=== PATIENT | male | born 1955 | race Caucasian/White ===

== ENCOUNTER 2016-05-14 17:13 | Emergency (ER) | payer BC, OTHER ==
[~2016-05-14] VITALS: Wt 72.0 kg
--- NOTE | 2016-05-14 19:55 | ERD ---
ER Documentation Chief Complaint Date/Time DATE: 05/14/16 TIME: 19:51 Chief Complaint RASH INTERMITTENT FOR THE PAST 10 DAYS HPI This is a 60-year-old male who presents to the emergency department today for a rash that started 10 days ago. Patient is went to his doctor but was not given any medications because he states that he does not drink water because he thinks he is allergic to it causes a reaction. States he then went to an urgent care and was given a shot and the rash resolved for a couple of days but then returned. States that his rash is very itching. Denies any fevers or chills, chest pain or shortness of breath or difficulty breathing ROS All systems reviewed and are negative except as per history of present illness. Medications Home Meds Active Scripts Famotidine* (Pepcid*) 20 Mg Tablet, 20 MG PO BID for 10 Days, TAB Prov:INGA DUDLEY PA-C 05/14/16 Diphenhydramine Hcl* (Benadryl*) 25 Mg Cap, 25 MG PO Q6, #30 CAP Prov:INGA DUDLEY PA-C 05/14/16 Prednisone* (Prednisone*) 20 Mg Tab, 40 MG PO DAILY for 4 Days, TAB Prov:INGA DUDLEY PA-C 05/14/16 Allergies Allergies: Coded Allergies: No Known Drug Allergy (Verified Allergy, Mild, 08/18/09) PMhx/Soc History of Surgery: Yes (appendectomy, sinus surgery.) Anesthesia Reaction: No Hx Neurological Disorder: No Hx Respiratory Disorders: No Hx Cardiac Disorders: No Hx Psychiatric Problems: No Hx Miscellaneous Medical Probl: No Hx Alcohol Use: Yes (rarely) Hx Substance Use: No Hx Tobacco Use: Yes Smoking Status: Current every day smoker Physical Exam Vitals Vital Signs Date Time Temp Pulse Resp B/P Pulse Ox O2 Delivery O2 Flow Rate FiO2 05/14/16 17:48 98.5 92 20 115/68 97 Physical Exam Const: No acute distress Head: Atraumatic Eyes: Normal Conjunctiva ENT: Normal External Ears, Nose and Mouth. Neck: Full range of motion..~ No meningismus. Resp: Clear to auscultation bilaterally Cardio: Regular rate and rhythm, no murmurs Abd: Soft, non tender, non distended. Normal bowel sounds Skin: Diffuse urticaria over abdomen, chest, back, thighs and no purulent drainage. No evidence of cellulitis. Back: No midline or flank tenderness Ext: No cyanosis, or edema Neur: Awake and alert Psych: Normal Mood and Affect Results 24 hrs Current Medications Medications (Trade) Dose Ordered Sig/Kirby Route PRN Reason Start Time Stop Time Status Last Admin Dose Admin Diphenhydramine HCl (Benadryl) 50 mg ONCE ONCE IM 05/14/16 20:00 05/14/16 20:01 DC 05/14/16 19:55 Dexamethasone (Decadron) 10 mg ONCE ONCE IM 05/14/16 20:00 05/14/16 20:01 DC 05/14/16 19:54 Procedures/MDM This is a 6-year-old male who presents to the emergency department today for rash that began 10 days ago and has been intermittent ever since. Patient did have some resolved with an injection he received an urgent care. Today on physical exam patient has diffuse urticaria. Patient is afebrile and otherwise well appearing. Low suspicion for sepsis, cellulitis, abscess, serious bacterial infection. He is not short of breath and his oxygen saturations 97%. I have a suspicion for angioedema or anaphylaxis. He was given IM Benadryl and IM Decadron and patient reported feeling a little bit better prior to depart. Patient will be given a prescription for Benadryl, prednisone and Pepcid Patient was requesting a prescription for injections. I told him that this is not something that we do here in the emergency department. He may take this with juice or whatever liquids he drinks during the day. I have explained this to him. I have explained to him that she should follow back up with his primary care physician for referral to dermatology or product design specialist if his symptoms do not resolve and continue to return. Patient understood At this time the patient is stable for discharge and outpatient management. Patient should follow up with their PCP in the next 1-2 days. They may return to the emergency department sooner for any persistent or worsening of symptoms. Patient understood and agreed with the plan. Departure Diagnosis: Primary Impression: Rash and other nonspecific skin eruption Condition: INGA Martinez PA-C May 14, 2016 19:55
[2016-05-14] MEDS ORDERED: DIPHENHYDRAMINE 50 MG INJ IM ONE (20:00)
[2016-05-14] MEDS ORDERED: DEXAMETHASONE 10 MG/ML 1 ML INJ IM ONE (20:00)
[2016-05-14] MEDS ORDERED: PRED20TA PO (20:19)
[2016-05-14] MEDS ORDERED: BEN25 PO (20:19)
[2016-05-14] MEDS ORDERED: FAMO-18 PO (20:20)
== END 2016-05-14 20:29 | disposition home or self-care (01) ==
LOC: FTE 17:13
DX: R21 Rash and other nonspecific skin eruption (principal); F17.210 Nicotine dependence, cigarettes, uncomplicated
CPT/HCPCS: 96372; J1100; J1200; Z7502

== ENCOUNTER 2016-05-20 12:53 | Emergency (ER) | payer OTHER ==
[~2016-05-20] VITALS: Wt 79.0 kg
[~2016-05-20 12:53] MED LIST: BEN25 PO; FAMO-18 PO; PRED20TA PO
[2016-05-20] MEDS ORDERED: METHYLPREDNISOLONE 125 MG INJ IV ONE (13:30)
[2016-05-20] MEDS ORDERED: DIPHENHYDRAMINE 50 MG INJ IV ONE (13:30)
[2016-05-20 14:06] LABS: BASOPHILS % 0.3 % (0.0-2.0); EOSINOPHILS # 0.2 10^3/ul (0.0-0.5); EOSINOPHILS % 1.6 % (0.0-7.0); HEMOGLOBIN 16.1 g/dl (14.0-18.0); LYMPHOCYTES # 2.2 10^3/ul (0.8-2.9); LYMPHOCYTES % 23.5 % (15.0-51.0); MEAN CORPUSCULAR HEMOGLOBIN 31.6 pg (29.0-33.0); MEAN CORPUSCULAR VOLUME 90.3 fl (82.0-101.0); MEAN PLATELET VOLUME 7.9 fl (7.4-10.4); MONOCYTE # 0.5 10^3/ul (0.3-0.9); MONOCYTES % 5.8 % (0.0-11.0); NEUTROPHIL # 6.4 10^3/ul (1.6-7.5); NEUTROPHILS % 68.8 % (39.0-77.0); PLATELET COUNT 204 10^3/UL (140-440); RED BLOOD COUNT 5.09 10^6/ul (4.70-6.10); RED CELL DISTRIBUTION WIDTH 12.9 % (11.5-14.5); UNCORRECTED WBC 9.4 10^3/ul (4.8-10.8); WHITE BLOOD COUNT 9.4 10^3/ul (4.8-10.8)
[2016-05-20 14:07] LABS: CONDITION 1
[2016-05-20 14:08] LABS: CREATININE 0.84 mg/dl (0.61-1.24)
[2016-05-20] MEDS ORDERED: HYDR-845 PO (14:48)
--- NOTE | 2016-05-20 15:15 | ERD ---
ER Documentation Chief Complaint Date/Time DATE: 05/20/16 TIME: 15:13 Chief Complaint intermittent rash for the past 2 wks. not better with meds. no stridor/sob HPI 60-year-old male comes to the ER with intermittent hives for 2 weeks. He states that he is allergic to water, he is trying to avoid water in the meantime , has had this pruritic rash that is diffuse and gets better each time he has gone to either the ER the urgent care for a shot. He has not had any chest pain , shortness of breath. He denies any new foods, medications, allergies lotions or creams. He states that he is interested in seeing an community outreach specialist. ROS All systems reviewed and are negative except as per history of present illness. Medications Home Meds Active Scripts Hydroxyzine Hcl* (Atarax*) 50 Mg Tab, 50 MG PO Q8H Y for ITCHING, #15 TAB Prov:THANH YOO PA-C 05/20/16 Famotidine* (Pepcid*) 20 Mg Tablet, 20 MG PO BID for 10 Days, TAB Prov:INGA DUDLEY PA-C 05/14/16 Diphenhydramine Hcl* (Benadryl*) 25 Mg Cap, 25 MG PO Q6, #30 CAP Prov:INGA DUDLEY PA-C 05/14/16 Prednisone* (Prednisone*) 20 Mg Tab, 40 MG PO DAILY for 4 Days, TAB Prov:NIGA DUDLEY PA-C 05/14/16 Allergies Allergies: Coded Allergies: No Known Drug Allergy (Verified Allergy, Mild, 08/18/09) PMhx/Soc History of Surgery: Yes (appendectomy, sinus surgery.) Anesthesia Reaction: No Hx Neurological Disorder: No Hx Respiratory Disorders: No Hx Cardiac Disorders: No Hx Psychiatric Problems: No Hx Miscellaneous Medical Probl: No Hx Alcohol Use: Yes (rarely) Hx Substance Use: No Hx Tobacco Use: Yes Smoking Status: Current every day smoker Physical Exam Vitals Vital Signs Date Time Temp Pulse Resp B/P Pulse Ox O2 Delivery O2 Flow Rate FiO2 05/20/16 12:56 98.1 94 21 148/75 98 Physical Exam General: Well-developed, well-nourished. The patient appears in no acute distress. HEENT: Head is normocephalic, atraumatic. No scleral icterus. Pupils are equal , round, and reactive. Oral mucous membranes are moist. No pharyngeal erythema. Neck: Supple. Nontender. Lungs: Clear to auscultation. Normal air movement. Heart: Regular rate and rhythm. S1 and S2 are normal. No murmurs, gallops, or rubs. Abdomen: Soft, nontender, nondistended. Bowel sounds are normoactive. Extremities: No clubbing or cyanosis. Normal pulses. Moving extremities x 4. No weakness. Neurologic: Alert and oriented 3. No focal deficits. Skin: Diffuse hives, blanchable. Result Diagram: 05/20/16 1345 05/20/16 1345 Results 24 hrs Laboratory Tests Test 05/20/16 13:45 Anion Gap 17 Basophils # 0.010^3/ul Basophils % 0.3% Blood Urea Nitrogen 16mg/dl Calcium Level 9.0mg/dl Carbon Dioxide Level 30mmol/L Chloride Level 105mmol/L Creatinine 0.84mg/dl Eosinophils # 0.210^3/ul Eosinophils % 1.6% Glucose Level 99mg/dl Hematocrit 46.0% Hemoglobin 16.1g/dl Lymphocytes # 2.210^3/ul Lymphocytes % 23.5% Mean Corpuscular Hemoglobin 31.6pg Mean Corpuscular Hemoglobin Concent 35.0g/dl Mean Corpuscular Volume 90.3fl Mean Platelet Volume 7.9fl Monocytes # 0.510^3/ul Monocytes % 5.8% Monoscreen Negative Neutrophils # 6.410^3/ul Neutrophils % 68.8% Nucleated Red Blood Cells # 0.010^3/ul Nucleated Red Blood Cells % 0.0/100WBC Platelet Count 97712^3/UL Potassium Level 4.0mmol/L Red Blood Count 5.0910^6/ul Red Cell Distribution Width 12.9% Sodium Level 148mmol/L White Blood Count 9.410^3/ul Current Medications Medications (Trade) Dose Ordered Sig/Kirby Route PRN Reason Start Time Stop Time Status Last Admin Dose Admin Diphenhydramine HCl (Benadryl) 50 mg ONCE ONCE IV 05/20/16 13:30 05/20/16 13:31 DC 05/20/16 13:46 Methylprednisolone Sodium Succinate (Solu-Medrol) 125 mg ONCE ONCE IV 05/20/16 13:30 05/20/16 13:31 DC 05/20/16 13:46 Procedures/MDM ED course: Blood and IV line was obtained, he was given Benadryl 50 mg IV, Solu-Medrol 125 mg IV. MDM: 60-year-old male comes in with hives, unknown cause. Explained to the patient that we will be able to obtain basic labs, allergies testing and further specialty testing should be done through an community outreach specialist and I have asked him to follow-up with his primary care doctor at this time. He has been given several medications, including Benadryl, Pepcid and prednisone, patient will be given Atarax for control of his symptoms at home, he has been asked to follow-up with his doctor next 1-2 days. There are no signs of any respiratory distress, no angioedema, patient has stable vital signs and will be discharged home. Departure Diagnosis: Primary Impression: Hives Condition: Good Patient Instructions: Hives Additional Instructions: Please follow-up with an community outreach specialist. Return sooner for any worsening or new symptoms. THANH YOO PA-C May 20, 2016 15:15
== END 2016-05-20 14:54 | disposition home or self-care (01) ==
LOC: FTE 12:53
DX: L50.9 Urticaria, unspecified (principal); F17.210 Nicotine dependence, cigarettes, uncomplicated
CPT/HCPCS: 80048; 85025; 86308; J1200; J2930; 36415; 96374; 96375